=== PATIENT | female | born 2000 | race Caucasian/White ===

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

== ENCOUNTER 2021-05-31 12:18 | Emergency (ER) | payer SELFPAY ==
[2021-05-31 13:45] VITALS: BP 144/86; PULSE 109; RESP 21; TEMP 36.9; O2SAT 99; BMI 32.5
--- NOTE | 2021-05-31 14:14 | HMH.EDUTC ---
[facility] [place]ression: Abnormal vaginal bleeding Disposition: Home, Self-Care Condition on Discharge: Fair Instructions: DI for Vaginal Bleeding Additional Instructions: You have been evaluated for heavy menstrual bleeding. You are anemic today. Please take iron supplement daily. Take it with a vitamin C tablet. Take medroxyprogesterone 10 mg daily for the next 10 days. Follow-up with your [facility]. You should have an exam including an endometrial biopsy. Return to the emergency department for any new or worsening symptoms, syncope, shortness of breath, other concerns. Prescriptions: Ferrous Sulfate [Iron 325mg Tab] 325 mg PO DAILY #30 tab Transmission Status: Received by [id number] Medroxyprogesterone Acetate 10 mg PO DAILY #10 tab Transmission Status: Received by [facility] Ascorbic Acid/Ascorbate Sodium [Vitamin C 500 mg Tablet Chew] 500 mg PO DAILY #30 Referrals: Provider,Referral, [Primary Care Provider] - Time of Disposition: 14:25 Medical Decision Making - Amrit Inquiry Pt receiving controlled substance: No Amrit was queried for this patient: No Vital Signs: 05/31/21 13:45 05/31/21 14:44 05/31/21 17:46 Temperature 98.5 F 97.8 F 97.8 F Temperature Source Oral Oral Pulse Rate 98 H Pulse Rate [Right Brachial] 109 H 132 H Respiratory Rate 21 18 20 Blood Pressure 124/80 Blood Pressure [Right Arm] 144/86 H 154/102 H Blood Pressure Mean [Right Arm] 105 119 Blood Pressure Source [Right Arm] Automatic Cuff Blood Pressure Position [Right Arm] Sitting 02 Sat by Pulse Oximetry 99 100 Oxygen Delivery Method Room Air Room Air Room Air - Lab Data Lab Results 05/31/21 14:25: WBC 7.0, RBC 2.90 L, Hgb 8.4 L, Hct 26.1 L, MCV 90.3, MCH 29.2, MCHC 32.3, RDW 14.0, Plt Count 403, MPV 8.9, Neut % (Auto) 67.1, Lymph % (Auto) 27.0, Morrison % (Auto) 3.7, Eos % (Auto) 1.2, Baso % (Auto) 1.0, Neut # (Auto) 4.7, Lymph # (Auto) 1.9, Morrison # (Auto) 0.3, Eos # (Auto) 0.1, Baso # (Auto) 0.1 05/31/21 14:25: Sodium 139, Potassium 4.0, Chloride 102, Carbon Dioxide 26, Anion Gap 15.0, BUN 12, Creatinine 0.70, Estimated Creat Clear 189, Estimated GFR 106, Est GFR ( Amer) 128, Glucose 96, Calcium 9.4, Total Bilirubin 0.3, AST 27, ALT 28, Alkaline Phosphatase 71, Total Protein 7.6, Albumin 4.7, Globulin 2.9, Albumin/Globulin Ratio 1.6 05/31/21 14:25: Serum HCG, Qual Negative Result diagrams: 05/31/21 14:25 05/31/21 14:25 Medical Decision Narrative: Due to patient having heavy vaginal bleeding, passing large clots, weakness, paleness, dizziness and achy in back and legs Discussed with patient and recommended transfer to the ED for further work up and evaluation and patient agreed Called ED and report given and patient was moved to room 7 [facility] [place] - General Stated complaint: prolonged period, nausea, weakness Time Seen by Provider: 05/31/21 14:14 Mode of Arrival: Ambulatory Source of Information: Patient Limitations: No Limitations Description of Symptoms (Recalled from Triage Doc. by RN): PATIENT STATES THAT SHE HAS HAD A PERIOD X 3 WEEKS WITH LARGE BLOOD CLOTS. ALSO C/O HEADACHE, DIZZINESS, NAUSEA, AND LEG/BACK PAIN HEENT Symptoms (Recalled from RN notes): Yes Resp Symptoms (Recalled from RN notes): No Skin Symptoms (Recalled from RN notes): No MS Symptoms (Recalled from RN notes): No Functional Status (Recalled from RN notes): WNL - History of Present Illness Provider Complaint: Patient states that she has been having heavy vaginal bleeding for about 3 weeks and has been passing large clots State that she has been trying to get into the OBGYN but couldnt get in and has appointment in a few days States that this morning when she got up family said her lips looked bluish in color and she was very pale and felt weak, dizzy, headache and nauseous State that she is also having crampy like leg and back pain States that they spoke to a physician and they told them they needed
--- NOTE | 2021-05-31 14:23 | PC.NURSE ---
PATIENT SENT TO ER PER Kortney HAGER APRN FOR FURTHER EVALUATION. REPORT GIVEN TO Joan ISABEL RN
--- NOTE | 2021-05-31 14:34 | ECG_ITS ---
APPROVED REPORT Exam: Resting ECG HR:107 bpm ECG Measurements Heart Rate 107 AXES CO 168 P 46 QRSd 92 QRS 59 QT 346 T 49 QTc 461 Conclusion Sinus tachycardia Otherwise normal ECG Electronically signed by : Smith Marmolejo MD 06/05/2021 13:54:18
--- NOTE | 2021-05-31 14:36 | HMH.EDGENADL ---
ED Disposition Clinical Impression: Abnormal vaginal bleeding Disposition: Home, Self-Care Condition on Discharge: Fair Instructions: DI for Vaginal Bleeding Additional Instructions: You have been evaluated for heavy menstrual bleeding. You are anemic today. Please take iron supplement daily. Take it with a vitamin C tablet. Take medroxyprogesterone 10 mg daily for the next 10 days. Follow-up with your [facility]. You should have an exam including an endometrial biopsy. Return to the emergency department for any new or worsening symptoms, syncope, shortness of breath, other concerns. Prescriptions: Ferrous Sulfate [Iron 325mg Tab] 325 mg PO DAILY #30 tab Transmission Status: Received by [id number] Medroxyprogesterone Acetate 10 mg PO DAILY #10 tab Transmission Status: Received by [id number] Ascorbic Acid/Ascorbate Sodium [Vitamin C 500 mg Tablet Chew] 500 mg PO DAILY #30 Referrals: Provider,Referral, MD [Primary Care Provider] - Time of Disposition: 17:03 - Critical Care Critical Care Time: No Attestation: On 05/31/21, the high probability of a clinically significant, sudden or life threatening deterioration of the following system(s) required my full and direct attention, intervention and personal management. The time I documented below is in addition to time spent performing reported procedures but includes the following listed in this critical care notation. Medical Decision Making - Medical Records Medical records reviewed: Yes: I reviewed the patient's medical records. - Amrit Inquiry Pt receiving controlled substance: No Vital Signs: 05/31/21 13:45 05/31/21 14:44 Temperature 98.5 F 97.8 F Temperature Source Oral Oral Pulse Rate [Right Brachial] 109 H 132 H Respiratory Rate 21 18 Blood Pressure [Right Arm] 144/86 H 154/102 H Blood Pressure Mean [Right Arm] 105 119 Blood Pressure Source [Right Arm] Automatic Cuff Blood Pressure Position [Right Arm] Sitting 02 Sat by Pulse Oximetry 99 100 Oxygen Delivery Method Room Air Room Air - Lab Data Lab Results 05/31/21 14:25: WBC 7.0, RBC 2.90 L, Hgb 8.4 L, Hct 26.1 L, MCV 90.3, MCH 29.2, MCHC 32.3, RDW 14.0, Plt Count 403, MPV 8.9, Neut % (Auto) 67.1, Lymph % (Auto) 27.0, Summers % (Auto) 3.7, Eos % (Auto) 1.2, Baso % (Auto) 1.0, Neut # (Auto) 4.7, Lymph # (Auto) 1.9, Summers # (Auto) 0.3, Eos # (Auto) 0.1, Baso # (Auto) 0.1 05/31/21 14:25: Sodium 139, Potassium 4.0, Chloride 102, Carbon Dioxide 26, Anion Gap 15.0, BUN 12, Creatinine 0.70, Estimated Creat Clear 189, Estimated GFR 106, Est GFR ( Amer) 128, Glucose 96, Calcium 9.4, Total Bilirubin 0.3, AST 27, ALT 28, Alkaline Phosphatase 71, Total Protein 7.6, Albumin 4.7, Globulin 2.9, Albumin/Globulin Ratio 1.6 05/31/21 14:25: Serum HCG, Qual Negative Result diagrams: 05/31/21 14:25 05/31/21 14:25 Orders (Tests/Meds): ORDERS Category Date Time Status UA [Urinalysis and Microscopic] Stat Lab 05/31/21 14:33 Ordered - ECG Data Tracing #1 Sinus tachycardia with ventricular rate of 107 bpm. QRS 92, QTc 461. No ST segment changes. No arrhythmia. Medical Decision Narrative: In summary this is a previously healthy 21-year-old female presenting to the emergency department with heavy vaginal bleeding and lightheadedness. Patient clinically stable on arrival. She is tachycardic. Other vital signs within normal limits. Concern for anemia, heavy menstrual bleeding, uterine mass, fibroma, intrauterine , ectopic . Will obtain CBC, CMP, urinalysis, hCG. Laboratory results concerning for significant anemia with hemoglobin of 8.4 and hematocrit of 26. Other laboratory results reassuring. negative. Pelvic exam shows dark red blood in the vaginal vault. This is similar to a normal menses and amount no lacerations or other acute findings. Quite concerned that she is having significant bleeding causing anemia. She has follow-up with an [facility]
[2021-05-31 14:44] VITALS: BP 154/102; PULSE 132; RESP 18; TEMP 36.6; O2SAT 100; BMI 35.6
[2021-05-31 14:45] LABS: Basophils # 0.1 K/mm3 (0-0.2); Eosinophils # 0.1 K/mm3 (0.0-0.4); Eosinophils % 1.2 % (0.1-12.0); Hematocrit 26.1 % (37.0-47.0); Hemoglobin 8.4 g/dL (12.2-16.2); Lymphocytes # 1.9 K/mm3 (0.7-4.5); Mean Corpuscular HGB Conc 32.3 g/dL (31.8-35.4); Mean Corpuscular Hemoglobin 29.2 pg (27.0-31.2); Mean Corpuscular Volume 90.3 fl (81-99); Mean Platelet Volume 8.9 fl (7.4-10.4); Monocytes # 0.3 K/mm3 (0.1-1.0); Monocytes % 3.7 % (1.7-9.3); Neutrophils # 4.7 K/mm3 (1.8-7.8); Neutrophils % 67.1 % (37.0-80.0); Platelet Count 403 K/mm3 (142-424)
[2021-05-31 14:49] LABS: Chloride 102 mmol/L (98-107); Sodium 139 mmol/L (136-145)
[2021-05-31 14:52] LABS: Alanine Aminotransferase 28 U/L (12-78); Alkaline Phosphatase 71 U/L (38-126); Aspartate Amino Transferase 27 U/L (14-36); Bilirubin,Total 0.3 mg/dl (0.2-1.3); Calcium 9.4 mg/dl (8.4-10.2); Carbon Dioxide 26 mmol/L (22.0-30.0); Glucose 96 mg/dl (74-100)
[2021-05-31 14:55] LABS: Albumin Level 4.7 g/dl (3.5-5.0); Albumin/Globulin Ratio 1.6 (1.1-1.8); Globulin 2.9 g/dL (1.3-3.2); Total Protein,Serum 7.6 g/dl (6.3-8.2)
[2021-05-31 14:57] LABS: Blood Urea Nitrogen 12 mg/dl (7-17); Creatinine Clearance Estimated 189 mL/min (50-200); Estimated Glomerular Filt Rate 106 ml/min (>60); GFR (African American) 128 ML/MIN (>60)
[2021-05-31 15:07] LABS: HCG Qualitative, Serum Negative (Negative)
--- NOTE | 2021-05-31 17:13 | PC.NURSE ---
updated pt on plan of care, which is to move her to room 11 for a pelvic exam. Pt denies any needs at this time. ASked to update her family, pt states she is in the car but is aware of everything. Pt on the phone at this time. IV unhooked and flushed at this time.
[2021-05-31 17:46] VITALS: BP 124/80; PULSE 98; RESP 20; TEMP 36.6; O2SAT 98
== END 2021-05-31 17:50 | disposition home or self-care (01) ==
LOC: UTC 12:52 → ER 14:24
PROVIDERS: Emergency Provider Emergency Medicine
DX: N93.8 Other specified abnormal uterine and vaginal bleeding (principal)
CPT/HCPCS: 80053; 84703; 85025; 93005; 99282